=== PATIENT | female | born 1945 | race Caucasian/White ===

== ENCOUNTER 2017-09-24 07:37 | Emergency (ER) | payer OTHER ==
[~2017-09-24 07:37] MED LIST: ANASPAZ0.125 MG; ATIVAN1 M1; PHENAZOPYRIDIN200 MG; PROTONIX20 MG
== END 2017-09-24 15:51 | disposition home or self-care (01) ==
LOC: ER 07:37
DX: K29.70 Gastritis, unspecified, without bleeding (principal)

== ENCOUNTER 2017-12-17 11:44 | Emergency (ER) | payer OTHER ==
[~2017-12-17] VITALS: Ht 165.1 cm; Wt 58.5 kg
[2017-12-17] MEDS ORDERED: GABAPENTIN100 MG (12:10)
[2017-12-17] MEDS ORDERED: CLONAZEPAM0.5 MG (12:11)
[2017-12-18] MEDS ORDERED: MEDROLPACK PO (06:51)
[2017-12-18] MEDS ORDERED: ZYRTEC10 M3 PO (06:51)
== END 2017-12-17 16:16 | disposition home or self-care (01) ==
LOC: ER 11:44
DX: T78.49XA Other allergy, initial encounter (principal); R21 Rash and other nonspecific skin eruption

== ENCOUNTER 2017-12-18 00:31 | Emergency (ER) | payer OTHER ==
[~2017-12-18] VITALS: Ht 167.6 cm; Wt 58.5 kg
[~2017-12-18 00:31] MED LIST changes: +CLONAZEPAM0.5 MG; +GABAPENTIN100 MG
[2017-12-18] MEDS ORDERED: ZYRTEC10 M3 PO (06:51)
[2017-12-18] MEDS ORDERED: MEDROLPACK PO (06:51)
== END 2017-12-18 07:22 | disposition home or self-care (01) ==
LOC: ER 00:31
DX: L50.8 Other urticaria (principal)

== ENCOUNTER 2018-04-09 12:43 | Emergency (ER) | payer OTHER ==
[~2018-04-09] VITALS: Ht 162.6 cm; Wt 63.5 kg
[~2018-04-09 12:43] MED LIST changes: +MEDROLPACK PO; +ZYRTEC10 M3 PO
== END 2018-04-09 15:51 | disposition home or self-care (01) ==
LOC: ER 12:43
DX: K52.89 Other specified noninfective gastroenteritis and colitis (principal)